=== PATIENT | female | born 1950 | race Caucasian/White ===

== ENCOUNTER → 2016-11-09 | Outpatient (CLI) | payer MEDICARE, BC ==
--- NOTE | ~2016-11-09 | US80 ---
[facility] A Service of [facility] & [facility] RADIOLOGY TEXT RESULTS PATIENT: MARNI CLARK LOCATION: [facility] : 46 UNIT #: [id number] AGE: [address]: Jonathan Madrid MD SEX: F ORDER DR: [id number] [address] [address] [id number] MR#: [id number] Acc #: [id number] NAME: MARNI CLARK : 1950 SEX: F STUDY DATE/TIME: 11/09/2016 10:21 UNIT: [facility] ROOM: STUDY DESCRIPTION: US Kidney Unilateral Complete Attending Physician: Jonathan Madrid M.D. Referring Physician: Jonathan Madrid M.D. Ordering Physician: Jonathan Madrid M.D. Primary Care Physician: Jonathan Madrid M.D. MEDICAL IMAGING REPORT This report is preliminary unless electronic signature is present. EXAM Left renal ultrasound 11/09/2016 HISTORY Cyst versus mass left kidney on recent MRI. Patient states history of uterine cancer, hypertension, diabetes, atrial fibrillation. COMPARISON MRI of the lumbar spine without contrast 10/26/2016. No prior dedicated renal ultrasound at this institution for comparison. TECHNIQUE Targeted unilateral left renal lesion was performed, as requested. FINDINGS The left kidney measures 10.1 x 5.6 x 5.3 cm. The left kidney maintains normal cortical echotexture. A single hypoechoic lesion is demonstrated within the posterior left mid- to lower renal pole measuring 1.6 x 1.3 x 1.4 cm. It does not represent a clearly simple cyst. It could represent a complex cyst containing hemorrhage or proteinaceous debris or could represent a solid left renal lesion. It remains indeterminate sonographically. This lesion demonstrates no internal vascularity on color Doppler imaging. There is a second area the technologist has placed calipers on in the anterolateral left mid kidney which is thought to represent a pseudo-nodule related to patient's normal capsular lobulation. It is not thought to be a true lesion and is not thought to correspond to the finding on recent MRI. No shadowing left renal stone or hydronephrosis is seen. Urinary bladder is incompletely distended but appears unremarkable. IMPRESSION [facility] A Service of [facility] & [facility] RADIOLOGY TEXT RESULTS PATIENT: MARNI CLARK LOCATION: [facility] : 46 UNIT #: [id number] AGE: [address]: Jonathan Madrid MD SEX: F ORDER DR: 1. 11.5 cm hypoechoic lesion in the left mid- to lower renal pole on today's ultrasound is thought to correspond to the questioned finding on the 10/26/2016 lumbar MRI. Unfortunately, based on sonography, remains indeterminate. Both cystic and solid renal lesions remain in the differential. Consider correlation to CT abdomen without and with contrast, renal mass protocol, if the patient can tolerate IV contrast. If the patient has impaired renal function and cannot tolerate contrast, then short-term renal ultrasound followup would be advised. Dictated by... Florence Moon M.D. DEV/ashish TD: 11/09/2016 18:39 JOB #: [id number] MEDICAL IMAGING REPORT
== END | disposition home or self-care (01) ==
LOC: SGUS 09:54
DX: I27.2 Other secondary pulmonary hypertension (principal); N28.89 Other specified disorders of kidney and ureter; N28.1 Cyst of kidney, acquired
CPT/HCPCS: 76770